=== PATIENT | female | born 1950 | race Caucasian/White ===

== ENCOUNTER 2016-11-17 08:48 | Inpatient (IN) | payer SELFPAY ==
[~2016-11-17] VITALS: Ht 160 cm; Wt 91.6 kg
[2016-11-17] VITALS (61 sets, daily range): BP systolic 30–140; BP diastolic 12–96
[2016-11-17] MEDS ORDERED: SODIUM CHLORIDE 0.9% 1,000 ML IV ONE ×2 (09:00→09:30)
[2016-11-17 09:32] LABS: MEAN CORPUSCULAR HEMOGLOBIN 33.9 pg (28.0-32.0); MEAN CORPUSCULAR HGB CONC 28.5 g/dL (31.0-37.0); MEAN CORPUSCULAR VOLUME 118.9 fL (81.0-99.0); MEAN PLATELET VOLUME 9.2 fl (7.4-10.4); PLATELET 125 x1000/uL (130-400); RED BLOOD CELL COUNT 1.68 mill/uL (4.2-5.4); RED CELL DISTRIBUTION WIDTH 16.4 % (11.6-14.6); WHITE BLOOD COUNT 17.7 x1000/uL (4.5-11.0)
[2016-11-17 09:39] LABS: CALCIUM 7.8 mg/dL (8.5-10.1); DIFFERENTIAL COMMENT 1
[2016-11-17 09:40] LABS: HEMOGLOBIN. 5.7 g/dL (12.0-16.0)
[2016-11-17 09:41] LABS: INR 1.8; PROTHROMBIN TIME 18.3 sec
[2016-11-17 09:47] LABS: TROPONIN I 0.14 ng/mL (0.00-0.04)
[2016-11-17 10:19] LABS: BG BASE EXCESS -25.4 mmol/L (-2.0-2.0); BG CARBOXYHEMOGLOBIN 0.3 % (0.5-1.5); BG DEOXYHEMOGLOBIN 6.2 % (0.0-5.0); BG FRACTION INSPIRED OXYGEN 40; BG HCO3 ACT 6.1 mmol/L (22.0-26.0); BG METHEMOGLOBIN 0.9 % (0.0-1.5); BG OXYGEN SATURATION 93.7 % (92.0-98.5); BG OXYHEMOGLOBIN 92.6 % (94.0-97.0); BG PH 6.833 (7.350-7.450); BG PO2 110.7 mmHg (75.0-100.0); BG SAMPLE SITE LEFT RADIAL; BG TOTAL HEMOGLOBIN 5.5 g/dL (12.0-18.0); BG VENT MODE NASAL CANNULA
[2016-11-17] MEDS ORDERED: EPINEPHRINE 0.1MG/ML (1:10,000) 10ML SYR ONE ×3 (10:38→12:19)
[2016-11-17 10:44] LABS: ANISOCYTOSIS 1+; PLATELET ESTIMATE SLIGHTLY DECREASED
[2016-11-17] MEDS ORDERED: VASOPRESSIN 10 UNIT in SODIUM CHLORIDE 0.9% 99.5 ML IV PRN (11:00)
[2016-11-17] MEDS ORDERED: OCTREOTIDE 1,000 MCG in SODIUM CHLORIDE 0.9% 100 ML IV ONE (11:00)
[2016-11-17] MEDS ORDERED: VASOPRESSIN 10 UNIT in SODIUM CHLORIDE 0.9% 99.5 ML IV ONE (11:08)
[2016-11-17 11:13] LABS: ALBUMIN 1.4 g/dL (3.4-5.0); BILIRUBIN DIRECT 0.3 mg/dL (0.0-0.2)
[2016-11-17] MEDS ORDERED: OCTREOTIDE 1,000 MCG in SODIUM CHLORIDE 0.9% 98 ML IV ONE (11:15)
[2016-11-17] MEDS ORDERED: PROPOFOL 10MG/ML 100ML 100 ML IV ONE (11:25)
[2016-11-17] MEDS ORDERED: PROPOFOL 10MG/ML 100ML 100 ML IV SCH (11:30)
[2016-11-17] MEDS ORDERED: WATER IV NR ×2 (11:30)
[2016-11-17] MEDS ORDERED: VASOPRESSIN IV NR (11:30)
[2016-11-17] MEDS ORDERED: OCTREOTIDE IV NR (11:30)
[2016-11-17] MEDS ORDERED: DEXT 5% IV NR ×2 (11:30)
[2016-11-17] MEDS ORDERED: OCTREOTIDE ACETATE 50 MCG/ML 1ML IV ONE (12:00)
[2016-11-17] MEDS ORDERED: CALCIUM CHLORIDE 1GM/10ML SYR IV ONE (12:19)
[2016-11-17] MEDS ORDERED: SODIUM BICARBONATE 7.5% 0.9 MEQ/ML 50ML SYR IV ONE ×2 (12:19)
[2016-11-17] MEDS ORDERED: DOPAMINE 400MG IN DEXT 5% 250ML PREMIX IV ONE (12:19)
[2016-11-17] MEDS ORDERED: ETOMIDATE 2MG/ML 10ML VIAL IV ONE (12:19)
[2016-11-17] MEDS ORDERED: PROPOFOL 10MG/ML 100ML 100 ML IV PRN (13:15)
[2016-11-17] MEDS ORDERED: PANTOPRAZOLE 80 MG in SODIUM CHLORIDE 0.9% 100 ML IV SCH ×2 (14:00→14:15)
[2016-11-17] MEDS ORDERED: DOPAMINE 400MG PREMIX 250 ML IV ONE (14:04)
[2016-11-17] MEDS ORDERED: SODIUM BICARBONATE 8.4% 1 MEQ/ML 50ML SYR IV ONE (14:10)
[2016-11-17] MEDS ORDERED: SODIUM BICARBONATE 8.4% 1 MEQ/ML 50ML SYR IV NR ×2 (14:14→15:00)
[2016-11-17] MEDS ORDERED: NOREPINEPHRINE 4 MG in DEXT 5% WATER 246 ML IV PRN (14:15)
[2016-11-17] MEDS ORDERED: PHENYLEPHRINE 10 MG in DEXT 5% WATER 249 ML IV PRN (14:15)
[2016-11-17] MEDS: VASOPRESSIN 10 UNIT in SODIUM CHLORIDE 0.9% 99.5 ML IV PRN ×2 (14:21→19:12)
[2016-11-17 14:23] LABS: BG BASE EXCESS -30.3 mmol/L (-2.0-2.0); BG CARBOXYHEMOGLOBIN 0.3 % (0.5-1.5); BG DEOXYHEMOGLOBIN 2.4 % (0.0-5.0); BG FRACTION INSPIRED OXYGEN 60; BG HCO3 ACT 4.1 mmol/L (22.0-26.0); BG METHEMOGLOBIN 0.2 % (0.0-1.5); BG OXYGEN SATURATION 97.6 % (92.0-98.5); BG OXYHEMOGLOBIN 97.1 % (94.0-97.0); BG PCO2 34.6 mmHg (35.0-45.0); BG PH 6.687 (7.350-7.450); BG PO2 176.6 mmHg (75.0-100.0); BG SAMPLE SITE LEFT RADIAL; BG TIDAL VOLUME(mL) 500 mL; BG TOTAL HEMOGLOBIN 7.4 g/dL (12.0-18.0); BG VENT MODE VENT - A/C; BG VENT RATE 14 set
[2016-11-17] MEDS: PHENYLEPHRINE 40 MG in DEXT 5% WATER 246 ML IV PRN ×2 (14:25→17:55)
[2016-11-17] MEDS ORDERED: PHYTONADIONE 10MG/ML AMP IV NR (14:30)
[2016-11-17] MEDS ORDERED: CALCIUM GLUCONATE 100MG/ML 10ML VIAL IV NR (14:30)
[2016-11-17] MEDS ORDERED: DOPAMINE 400MG PREMIX 250 ML IV PRN ×2 (14:30→15:45)
[2016-11-17] MEDS ORDERED: PHYTONADIONE 10MG/ML AMP SUBCUT ONE (14:30)
[2016-11-17] MEDS ORDERED: CALCIUM CHLORIDE 1GM/10ML SYR IV NR ×2 (14:30→15:00)
[2016-11-17] MEDS: NOREPINEPHRINE 8 MG in DEXT 5% WATER 242 ML IV PRN ×2 (14:46→18:51)
[2016-11-17] MEDS ORDERED: MORPHINE SULFATE 2 MG/ML CPJ (NOT FOR IM USE) IV PRN ×2 (15:00)
[2016-11-17] MEDS ORDERED: OCTREOTIDE 1,000 MCG in SODIUM CHLORIDE 0.9% 100 ML IV SCH (15:00)
[2016-11-17] MEDS ORDERED: LEVOFLOXACIN 250MG PREMIX 50 ML IV SCH (15:00)
[2016-11-17] MEDS ORDERED: LORAZEPAM 2MG/ML CPJ IV PRN (15:00)
[2016-11-17 15:15] LABS: MEAN CORPUSCULAR HGB CONC 29.8 g/dL (31.0-37.0); MEAN CORPUSCULAR VOLUME 100.5 fL (81.0-99.0); MEAN PLATELET VOLUME 9.2 fl (7.4-10.4); PLATELET 57 x1000/uL (130-400); RED BLOOD CELL COUNT 1.39 mill/uL (4.2-5.4); RED CELL DISTRIBUTION WIDTH 16.6 % (11.6-14.6); WHITE BLOOD COUNT 21.1 x1000/uL (4.5-11.0)
[2016-11-17 15:19] LABS: HEMOGLOBIN. 4.2 g/dL (12.0-16.0)
[2016-11-17 15:20] LABS: DIFFERENTIAL COMMENT 1
[2016-11-17 15:21] LABS: HEMATOCRIT. 13.9 % (36.0-48.0)
[2016-11-17 15:26] LABS: INDEX HEMOLYSI 2 (1-3)
[2016-11-17 15:41] LABS: ALANINE AMINOTRANSFERASE 235 IU/L (13-61); ANION GAP 33; CALCIUM 10.6 mg/dL (8.5-10.1); CARBON DIOXIDE 14 mEq/L (21-32); CHLORIDE 117 mEq/L (98-107); INDEX HEMOLYSI 1 (1-3); INDEX ICTERIC 1 (1-4); INDEX LIPEMIC 1 (1-3); UREA NITROGEN BLOOD 19 mg/dL (7-21); eGFR > 60 mL/min (>60)
[2016-11-17 15:47] LABS: PROTHROMBIN TIME 49.1 sec
[2016-11-17 15:54] LABS: ALBUMIN 0.8 g/dL (3.4-5.0); AMMONIA 541 uMol/L (<32)
[2016-11-17] MEDS ORDERED: SODIUM BICARBONATE 50 MEQ in DEXTROSE 5% WATER 1,000 ML IV SCH (16:00)
[2016-11-17] MEDS ORDERED: LEVOFLOXACIN 500MG PREMIX 100 ML IV NR (16:00)
[2016-11-17 16:07] LABS: INR 4.7
[2016-11-17 16:08] LABS: PARTIAL THROMBOPLASTIN TIME > 200.0 sec (24.0-34.0)
[2016-11-17 16:24] LABS: PLATELET ESTIMATE DECREASED
[2016-11-17] MEDS ORDERED: VANCOMYCIN 1500MG in DEXTROSE 5% WATER 250ML IV NR (16:30)
[2016-11-17] MEDS ORDERED: SODIUM BICARBONATE 150 MEQ in DEXTROSE 5% WATER 1,000 ML IV SCH (16:30)
[2016-11-17 16:33] LABS: HEPATITIS B SURFACE ANTIGEN NEGATIVE
[2016-11-17 17:01] LABS: HEPATITIS B CORE AB IGM NEGATIVE; HEPATITIS C VIR.AB < 0.02 INDEXVAL (0.00-0.80)
[2016-11-17 17:03] LABS: HEPATITIS A AB IGM NEGATIVE (NEGATIVE)
[2016-11-17] MEDS: DOPAMINE 800MG PREMIX 250 ML IV PRN ×2 (17:29→20:04)
[2016-11-17] MEDS ORDERED: OLME1TAB30 PO (19:12)
[2016-11-17] MEDS ORDERED: ALD50 PO (19:12)
[2016-11-17] MEDS ORDERED: FERR-63 PO (19:12)
[2016-11-17] MEDS ORDERED: ASPI-1035 PO (19:12)
[2016-11-17] MEDS ORDERED: FURO20TA4 PO (19:12)
[2016-11-17] MEDS ORDERED: PRAV80TA21 PO (19:12)
[2016-11-17] MEDS ORDERED: INSULIN LISPRO 100 UNITS/ML SUBCUT SCH (19:15)
[2016-11-17] MEDS ORDERED: BLOOD SUGAR DIAGNOSTIC STRIP TEST SCH (19:15)
[2016-11-17] MEDS ORDERED: DEXTROSE 50% WATER 50ML SYRINGE IV PRN (19:15)
[2016-11-17 19:57] LABS: MEAN CORPUSCULAR HEMOGLOBIN 29.6 pg (28.0-32.0); MEAN CORPUSCULAR HGB CONC 27.8 g/dL (31.0-37.0); MEAN CORPUSCULAR VOLUME 106.5 fL (81.0-99.0); MEAN PLATELET VOLUME 10.1 fl (7.4-10.4); PLATELET 59 x1000/uL (130-400); RED BLOOD CELL COUNT 1.52 mill/uL (4.2-5.4); RED CELL DISTRIBUTION WIDTH 15.1 % (11.6-14.6); WHITE BLOOD COUNT 11.4 x1000/uL (4.5-11.0)
[2016-11-17] MEDS ORDERED: LACTULOSE 300 ML in WATER FOR INJECTION,STERILE 700 ML PR NR (20:00)
[2016-11-17 20:02] LABS: DIFFERENTIAL COMMENT 1; HEMATOCRIT. 16.1 % (36.0-48.0); HEMOGLOBIN. 4.5 g/dL (12.0-16.0)
[2016-11-17 20:35] LABS: NUCLEATED RED BLOOD CELLS 2 /100 WBC; PLATELET ESTIMATE MARKEDLY DECREASED
[2016-11-17] MEDS ORDERED: SODIUM CHLORIDE 10% FOR INH 15ML VIAL NEB INH SCH (21:00)
[2016-11-18] MEDS ORDERED: LEVOFLOXACIN 250MG PREMIX 50 ML IV SCH (15:00)
[2016-11-18] MEDS ORDERED: VANCOMYCIN 1 G PREMIX 200 ML IV SCH (16:00)
== END 2016-11-18 02:17 | disposition expired | DRG 720 ==
LOC: EDBD 08:58 → ER 08:58 → CVICU 11:14
PROVIDERS: ADMIT Family Medicine; ATTEND Family Medicine
PROC: 30233L1 Transfusion of Nonautologous Fresh Plasma into Peripheral Vein, Percutaneous Approach (ICD-10-PCS; principal; 2016-11-17)
PROC: 30233N1 Transfusion of Nonautologous Red Blood Cells into Peripheral Vein, Percutaneous Approach (ICD-10-PCS; 2016-11-17)
PROC: 30233R1 Transfusion of Nonautologous Platelets into Peripheral Vein, Percutaneous Approach (ICD-10-PCS; 2016-11-17)
PROC: 30233K1 Transfusion of Nonautologous Frozen Plasma into Peripheral Vein, Percutaneous Approach (ICD-10-PCS; 2016-11-17)
PROC: 5A1935Z Respiratory Ventilation, Less than 24 Consecutive Hours (ICD-10-PCS; 2016-11-17)
PROC: 0BH17EZ Insertion of Endotracheal Airway into Trachea, Via Natural or Artificial Opening (ICD-10-PCS; 2016-11-17)
DX: A41.9 Sepsis, unspecified organism (principal); K72.00 Acute and subacute hepatic failure without coma; J96.00 Acute respiratory failure, unspecified whether with hypoxia or hypercapnia; I46.9 Cardiac arrest, cause unspecified; R65.21 Severe sepsis with septic shock; I85.01 Esophageal varices with bleeding; G93.41 Metabolic encephalopathy; E43 Unspecified severe protein-calorie malnutrition; D68.9 Coagulation defect, unspecified; K92.2 Gastrointestinal hemorrhage, unspecified; N17.9 Acute kidney failure, unspecified; E87.0 Hyperosmolality and hypernatremia; E87.5 Hyperkalemia; E11.22 Type 2 diabetes mellitus with diabetic chronic kidney disease; I12.9 Hypertensive chronic kidney disease with stage 1 through stage 4 chronic kidney disease, or unspecified chronic kidney disease; N18.9 Chronic kidney disease, unspecified; D69.59 Other secondary thrombocytopenia; K70.31 Alcoholic cirrhosis of liver with ascites; D53.9 Nutritional anemia, unspecified; D75.89 Other specified diseases of blood and blood-forming organs; F10.10 Alcohol abuse, uncomplicated; D62 Acute posthemorrhagic anemia; Z68.35 Body mass index [BMI] 35.0-35.9, adult
CPT/HCPCS: 31500; 36415; 36556; 36600; 71010; 76700; 80048; 80053; 80076; 82105; 82140; 82375; 82805; 82962; 83880; 84484; 85025; 85610; 85730; 86705; 86709; 86803; 86850; 86900; 86920; 86927; 86945; 87340; 92950; 93005; 96374; 96375; 96376; 99291; 99292; C9113; J0171; J0610; J1265; J1956; J2354; J2370; J2704; J3370; J3430; J3490; J7030; J7050; J7060; J7070; J7131; P9016; P9017; P9034